=== PATIENT | female | born 2000 | race African-American/Black ===

== ENCOUNTER 2021-05-19 15:10 | Emergency (ER) | payer OTHER ==
[~2021-05-19] VITALS: Ht 170.2 cm; Wt 83.5 kg
[2021-05-19 15:11] VITALS: BP 128/67
== END 2021-05-19 17:14 | disposition home or self-care (01) ==
LOC: M ED 15:10
DX: Z32.00 Encounter for pregnancy test, result unknown (principal); N92.6 Irregular menstruation, unspecified